=== PATIENT | female | born 1950 | race Hispanic/Latino ===

== ENCOUNTER → 2017-12-17 | Outpatient (CLI) | payer OTHER ==
[~2017-12-17] MED LIST: ASPI-555 PO; LUBI8CAP PO; SERT100T12 PO; SIMV40TA59 PO
== END | disposition home or self-care (01) ==
LOC: RAH 12:31
PROVIDERS: ATTEND Internal Medicine
DX: Z13.6 Encounter for screening for cardiovascular disorders (principal); K44.9 Diaphragmatic hernia without obstruction or gangrene
CPT/HCPCS: 75571

== ENCOUNTER → 2018-05-23 | Outpatient (CLI) | payer OTHER | END | disposition home or self-care (01) | LOC: RAH 08:47 | PROVIDERS: ATTEND Internal Medicine | DX: Z12.31 Encounter for screening mammogram for malignant neoplasm of breast (principal); I10 Essential (primary) hypertension; E78.00 Pure hypercholesterolemia, unspecified; M17.11 Unilateral primary osteoarthritis, right knee; K21.9 Gastro-esophageal reflux disease without esophagitis; Z90.49 Acquired absence of other specified parts of digestive tract | CPT/HCPCS: 77067 ==

== ENCOUNTER → 2019-05-24 | Outpatient (CLI) | payer OTHER | END | disposition home or self-care (01) | LOC: RAH 09:11 | PROVIDERS: ATTEND Internal Medicine | DX: Z12.31 Encounter for screening mammogram for malignant neoplasm of breast (principal) | CPT/HCPCS: 77067 ==

== ENCOUNTER → 2019-05-30 | Outpatient (CLI) | payer OTHER | END | disposition home or self-care (01) | LOC: RAH 07:50 | PROVIDERS: ATTEND Internal Medicine | DX: R10.9 Unspecified abdominal pain (principal); Z90.49 Acquired absence of other specified parts of digestive tract | CPT/HCPCS: 76700 ==

== ENCOUNTER 2019-12-30 13:42 | Emergency (ER) | payer OTHER ==
[2019-12-30] MEDS ORDERED: KETOROLAC TROMETHAMINE 15MG/ML ONE (14:42)
[2019-12-30] MEDS ORDERED: PROCHLORPERAZINE EDISYLATE 10 MG/2 ML VIAL ONE (14:42)
[2019-12-30 14:44] LABS: EOSINOPHILS % (AUTO) 3.3 % (0.0-8.0); HEMATOCRIT 39.7 % (36-48); LYMPHOCYTES % (AUTO) 41.7 % (21.0-51.0); MEAN CORPUSCULAR HEMOGLOBIN 29.4 pg (27.0-33.0); MEAN CORPUSCULAR HGB CONC 33.5 g/dL (32.0-36.0); MEAN CORPUSCULAR VOLUME 87.6 fL (79-99); NEUTROPHILS % (AUTO) 46.9 % (40.0-77.0); PLATELET COUNT (AUTO) 232 K/uL (130-400); RED BLOOD CELL COUNT(AUTO) 4.53 MIL/uL (4.00-5.50); RED CELL DISTRIBUTION WIDTH 12.7 % (11.0-15.5)
[2019-12-30 14:59] LABS: CREATININE 0.7 mg/dL (0.5-1.5); POTASSIUM 4.3 mmol/L (3.5-5.1)
[2019-12-30 15:01] LABS: APPEARANCE,URINE Clear (CLEAR); BILIRUBIN,URINE Negative (NEGATIVE); COLOR,URINE Yellow (YELLOW); GLUCOSE, URINE (UA) Negative (NEGATIVE); KETONES,URINE Negative (NEGATIVE); LEUKOCYTE ESTERASE ,URINE Negative (NEGATIVE); NITRATE,URINE Negative (NEGATIVE); OCCULT BLOOD,URINE Negative (NEGATIVE); PROTEIN,URINE Negative (NEGATIVE); UROBILINOGEN,URINE 0.2 mg/dL (0.2-1.0)
[2019-12-30 15:03] LABS: ALBUMIN 3.6 g/dL (3.5-5.0); BILIRUBIN,TOTAL 0.4 mg/dL (0.2-1.0)
== END 2019-12-30 17:03 | disposition home or self-care (01) ==
LOC: EDH 13:42
DX: F32.9 Major depressive disorder, single episode, unspecified (principal); F41.9 Anxiety disorder, unspecified
CPT/HCPCS: 36415; 70450; 80053; 81003; 85025; 96374; 96375; 96376; 99284; J0780; J1885

== ENCOUNTER → 2020-02-28 | Outpatient (CLI) | payer OTHER ==
[~2020-02-28] MED LIST changes: -ASPI-555 PO; +ASPI-556 PO
== END | disposition home or self-care (01) ==
LOC: RAH 08:39
PROVIDERS: ATTEND Internal Medicine
DX: M79.672 Pain in left foot (principal)
CPT/HCPCS: 73650

== ENCOUNTER → 2020-08-26 | Outpatient (CLI) | payer OTHER | END | disposition home or self-care (01) | LOC: RAH 08:33 | PROVIDERS: ATTEND Internal Medicine | DX: R01.1 Cardiac murmur, unspecified (principal); R06.02 Shortness of breath | CPT/HCPCS: 93015 ==

== ENCOUNTER 2020-09-21 14:15 | Emergency (ER) | payer OTHER | END 2020-09-21 16:24 | disposition home or self-care (01) | LOC: EDH 14:15 | DX: B34.9 Viral infection, unspecified (principal); Z20.828 Contact with and (suspected) exposure to other viral communicable diseases | CPT/HCPCS: 87426; 99283; U0003 ==

== ENCOUNTER → 2020-10-29 | Outpatient (CLI) | payer OTHER ==
[~2020-10-29] MED LIST changes: +SERT-440 PO; -SERT100T12 PO
== END | disposition home or self-care (01) ==
LOC: OIH 14:06
PROVIDERS: ATTEND Internal Medicine Cardiovascular Disease
DX: Z13.6 Encounter for screening for cardiovascular disorders (principal)
CPT/HCPCS: 75571

== ENCOUNTER → 2022-06-23 | Outpatient (CLI) | payer OTHER | END | disposition home or self-care (01) | LOC: RAH 11:12 | PROVIDERS: ATTEND Family Medicine | DX: Z12.31 Encounter for screening mammogram for malignant neoplasm of breast (principal) | CPT/HCPCS: 77067 ==

== ENCOUNTER 2022-09-24 08:13 | Emergency (ER) | payer OTHER ==
[~2022-09-24] VITALS: Ht 157.5 cm; Wt 74.8 kg
[2022-09-24 08:54] LABS: BASOPHILS % (AUTO) 1.3 % (0.0-5.0); EOSINOPHILS % (AUTO) 3.7 % (0.0-8.0); HEMATOCRIT 38.8 % (36-48); LYMPHOCYTES % (AUTO) 42.6 % (21.0-51.0); MEAN CORPUSCULAR HEMOGLOBIN 28.1 pg (27.0-33.0); MEAN CORPUSCULAR HGB CONC 32.5 g/dL (32.0-36.0); MEAN CORPUSCULAR VOLUME 86.6 fL (79-99); NEUTROPHILS % (AUTO) 44.2 % (40.0-77.0); PLATELET COUNT (AUTO) 234 K/uL (130-400); RED BLOOD CELL COUNT(AUTO) 4.48 MIL/uL (4.00-5.50); RED CELL DISTRIBUTION WIDTH 13.4 % (11.0-15.5)
[2022-09-24 09:02] LABS: CREATININE 0.6 mg/dL (0.5-1.5); POTASSIUM 4.1 mmol/L (3.5-5.1)
[2022-09-24 09:08] LABS: ALBUMIN 3.9 g/dL (3.5-5.0); TOTAL PROTEIN, SERUM 7.2 g/dL (6.0-8.3)
[2022-09-24] MEDS ORDERED: ORPHENADRINE CITRATE 30 MG/ML ML IM STA (09:20)
[2022-09-24] MEDS ORDERED: KETOROLAC 30MG VIAL (30MG/ML) IM STA (09:20)
[2022-09-24] MEDS ORDERED: DICL20GE TP (09:44)
[2022-09-24] MEDS ORDERED: METH-662 PO (09:45)
[2022-09-24 13:18] VITALS: BP 132/78
== END 2022-09-24 13:19 | disposition home or self-care (01) ==
LOC: EDH 08:13
DX: S46.912A Strain of unspecified muscle, fascia and tendon at shoulder and upper arm level, left arm, initial encounter (principal); I11.9 Hypertensive heart disease without heart failure; E11.9 Type 2 diabetes mellitus without complications; E78.00 Pure hypercholesterolemia, unspecified; F32.9 Major depressive disorder, single episode, unspecified; Z79.899 Other long term (current) drug therapy; Z79.82 Long term (current) use of aspirin; X58.XXXA Exposure to other specified factors, initial encounter; Y93.89 Activity, other specified; Y92.89 Other specified places as the place of occurrence of the external cause; Y99.8 Other external cause status
CPT/HCPCS: 99285; 70450; 84484; 80053; 85025; 36415; 96372 ×2; 93005; J1885; J2360

== ENCOUNTER → 2023-02-03 | Outpatient (CLI) | payer OTHER ==
[~2023-02-03] MED LIST changes: +DICL20GE TP; +METH-662 PO
== END | disposition home or self-care (01) ==
LOC: RAH 13:39
PROVIDERS: ATTEND Family Medicine
DX: N64.4 Mastodynia (principal); N64.59 Other signs and symptoms in breast
CPT/HCPCS: 76641; 77065

== ENCOUNTER → 2023-04-20 | Outpatient (CLI) | payer OTHER | END | disposition home or self-care (01) | LOC: SHCH 13:01 | PROVIDERS: ATTEND Internal Medicine Cardiovascular Disease | DX: I42.0 Dilated cardiomyopathy (principal) | CPT/HCPCS: 93306 ==

== ENCOUNTER → 2023-07-20 | Outpatient (CLI) | payer OTHER | END | disposition home or self-care (01) | LOC: RAH 15:28 | PROVIDERS: ATTEND Family Medicine | DX: M17.12 Unilateral primary osteoarthritis, left knee (principal); M25.562 Pain in left knee | CPT/HCPCS: 73562 ==

== ENCOUNTER 2023-12-16 21:43 | Emergency (ER) | payer OTHER ==
[~2023-12-16] VITALS: Ht 154.9 cm; Wt 74.8 kg
[2023-12-16 22:41] LABS: BASOPHILS # (AUTO) 0.07 K/uL (0.00-0.20); BASOPHILS % (AUTO) 1.2 % (0.0-5.0); EOSINOPHILS # (AUTO) 0.12 K/uL (0.00-0.70); HEMATOCRIT 34.5 % (36-48); IMMATURE GRANULOCYTE ABSOLUTE 0.02 K/uL (0-1); LYMPHOCYTES # (AUTO) 1.9 K/uL (1.0-4.8); LYMPHOCYTES % (AUTO) 32.2 % (21.0-51.0); MEAN CORPUSCULAR HEMOGLOBIN 27.4 pg (27.0-33.0); MEAN CORPUSCULAR HGB CONC 31.9 g/dL (32.0-36.0); MONOCYTES # (AUTO) 0.7 K/uL (0.1-1.0); MONOCYTES % (AUTO) 12.5 % (3.0-13.0); NEUTROPHILS # (AUTO) 3.1 K/uL (1.8-7.7); NEUTROPHILS % (AUTO) 51.8 % (40.0-77.0); PLATELET COUNT (AUTO) 236 K/uL (130-400); RED BLOOD CELL COUNT(AUTO) 4.01 MIL/uL (4.00-5.50); RED CELL DISTRIBUTION WIDTH 12.9 % (11.0-15.5); WHITE BLOOD COUNT (AUTO) 5.9 K/uL (4.8-10.8)
[2023-12-16 22:43] LABS: APPEARANCE,URINE CLEAR (CLEAR); BILIRUBIN,URINE NEGATIVE (NEGATIVE); COLOR,URINE LIGHT-YELLOW (YELLOW); GLUCOSE, URINE (UA) NEGATIVE (NEGATIVE); KETONES,URINE NEGATIVE (NEGATIVE); LEUKOCYTE ESTERASE ,URINE NEGATIVE Leu/uL (NEGATIVE); NITRATE,URINE NEGATIVE (NEGATIVE); OCCULT BLOOD,URINE NEGATIVE (NEGATIVE); PH,URINE 5.5 (5.0-8.0); PROTEIN,URINE 10 mg/dL (NEGATIVE); UROBILINOGEN,URINE 0.2 mg/dL (0.2-1.0)
[2023-12-16 22:47] LABS: ADD UA MICROSCOPIC YES
[2023-12-16 22:49] LABS: BACTERIA,URINE RARE /HPF (None Seen); MUCUS,URINE FEW LPF (None Seen); RBC,URINE 0-1 /HPF (0-1); SQUAMOUS EPITHELIAL CELL,UR RARE /HPF (0-2); WBC,URINE 0-1 /HPF (0-1)
[2023-12-16 23:11] LABS: CREATININE 0.6 mg/dL (0.5-1.0); POTASSIUM 3.5 mmol/L (3.5-5.1)
[2023-12-16 23:15] LABS: BILIRUBIN,TOTAL 0.2 mg/dL (0.2-1.0); TOTAL PROTEIN, SERUM 6.6 g/dL (6.0-8.3)
[2023-12-16] MEDS: LACTATED RINGERS 1000ML 1,000 ML IV ONE (23:17)
[2023-12-16] MEDS: ONDANSETRON 4MG INJ IVP ONE (23:17)
[2023-12-17 00:26] VITALS: BP 122/62; PULSE 75; RESP 18; O2SAT 98
== END 2023-12-17 00:41 | disposition home or self-care (01) ==
LOC: EDH 21:43
DX: K52.9 Noninfective gastroenteritis and colitis, unspecified (principal); R11.2 Nausea with vomiting, unspecified; E78.00 Pure hypercholesterolemia, unspecified; I10 Essential (primary) hypertension; F32.A Depression, unspecified; Z79.1 Long term (current) use of non-steroidal anti-inflammatories (NSAID)
CPT/HCPCS: 99284; 96374; 96361; 80053; 83690; 85025; 81001; 36415; J7120; J2405

== ENCOUNTER → 2024-02-15 | Outpatient (CLI) | payer OTHER | END | disposition home or self-care (01) | LOC: RAH 09:19 | PROVIDERS: ATTEND Surgery | DX: K44.9 Diaphragmatic hernia without obstruction or gangrene (principal); K21.9 Gastro-esophageal reflux disease without esophagitis | CPT/HCPCS: 74240 ==

== ENCOUNTER 2024-03-30 16:43 | Emergency (ER) | payer OTHER, MEDICARE ==
[~2024-03-30] VITALS: Ht 157.5 cm; Wt 74.8 kg
[2024-03-30 17:13] LABS: BASOPHILS % (AUTO) 1.1 % (0.0-5.0); EOSINOPHILS # (AUTO) 0.11 K/uL (0.00-0.70); EOSINOPHILS % (AUTO) 1.2 % (0.0-8.0); HEMATOCRIT 39.8 % (36-48); IMMATURE GRANULOCYTE ABSOLUTE 0.03 K/uL (0-1); LYMPHOCYTES # (AUTO) 4.1 K/uL (1.0-4.8); LYMPHOCYTES % (AUTO) 44.3 % (21.0-51.0); MEAN CORPUSCULAR HEMOGLOBIN 25.7 pg (27.0-33.0); MEAN CORPUSCULAR HGB CONC 31.9 g/dL (32.0-36.0); MEAN CORPUSCULAR VOLUME 80.6 fL (79-99); MONOCYTES # (AUTO) 0.5 K/uL (0.1-1.0); MONOCYTES % (AUTO) 5.7 % (3.0-13.0); NEUTROPHILS # (AUTO) 4.4 K/uL (1.8-7.7); NEUTROPHILS % (AUTO) 47.4 % (40.0-77.0); PLATELET COUNT (AUTO) 371 K/uL (130-400); RED BLOOD CELL COUNT(AUTO) 4.94 MIL/uL (4.00-5.50); WHITE BLOOD COUNT (AUTO) 9.3 K/uL (4.8-10.8)
[2024-03-30 17:20] LABS: ADD UA MICROSCOPIC YES; APPEARANCE,URINE CLEAR (CLEAR); BILIRUBIN,URINE NEGATIVE (NEGATIVE); COLOR,URINE LIGHT-YELLOW (YELLOW); GLUCOSE, URINE (UA) NEGATIVE (NEGATIVE); KETONES,URINE NEGATIVE (NEGATIVE); LEUKOCYTE ESTERASE ,URINE NEGATIVE Leu/uL (NEGATIVE); NITRATE,URINE NEGATIVE (NEGATIVE); OCCULT BLOOD,URINE NEGATIVE (NEGATIVE); PROTEIN,URINE NEGATIVE (NEGATIVE); UROBILINOGEN,URINE 0.2 mg/dL (0.2-1.0)
[2024-03-30 17:22] LABS: BACTERIA,URINE RARE /HPF (None Seen); MUCUS,URINE RARE LPF (None Seen); RBC,URINE 0-1 /HPF (0-1); SQUAMOUS EPITHELIAL CELL,UR RARE /HPF (0-2)
[2024-03-30 17:26] LABS: CARBON DIOXIDE 30 mmol/L (21-32); CHLORIDE 104 mmol/L (101-111); CREATININE 0.7 mg/dL (0.5-1.0); GLOMERULAR FILTR. RATE CALC 92 mL/min (>90); GLUCOSE,RANDOM 104 mg/dL (70-105); SODIUM SERUM 142 mmol/L (136-145); UREA NITROGEN, BLOOD 12 mg/dL (7-18)
[2024-03-30 17:27] LABS: AMPHET/METH SCREEN,URINE NEGATIVE (NEGATIVE); BARBITURATE SCREEN, URINE NEGATIVE (NEGATIVE); BENZODIAZEPINES SCREEN,URINE NEGATIVE (NEGATIVE); CANNABINOID SCREEN,URINE NEGATIVE (NEGATIVE); COCAINE SCREEN,URINE NEGATIVE (NEGATIVE); OPIATE SCREEN,URINE NEGATIVE (NEGATIVE); PHENCYCLIDINE SCREEN,URINE NEGATIVE (NEGATIVE)
[2024-03-30 17:31] LABS: ACETAMINOPHEN < 1 mcg/mL (10-30); ALANINE AMINOTRANSFERASE 25 U/L (12-78); ALBUMIN 3.8 g/dL (3.5-5.0); ALCOHOL, BLOOD < 3 mg/dL (0-10); ASPARTATE AMINOTRANSFERASE 18 U/L (10-37); BILIRUBIN,TOTAL 0.5 mg/dL (0.2-1.0); SALICYLATE < 2.8 mg/dL (2.8-20.0); TOTAL PROTEIN, SERUM 7.7 g/dL (6.0-8.3)
[2024-03-30 20:01] VITALS: BP 175/82; PULSE 82; RESP 16; O2SAT 99
== END 2024-03-30 20:08 | disposition home or self-care (01) ==
LOC: EDH 16:43
DX: F41.9 Anxiety disorder, unspecified (principal); F32.A Depression, unspecified; E78.00 Pure hypercholesterolemia, unspecified; I10 Essential (primary) hypertension; Z79.1 Long term (current) use of non-steroidal anti-inflammatories (NSAID); Z79.899 Other long term (current) drug therapy; Z98.890 Other specified postprocedural states
CPT/HCPCS: 99283; 80053; 80305; 85025; 81001; 36415; G0481

== ENCOUNTER 2024-04-14 10:02 | Emergency (ER) | payer OTHER, MEDICARE ==
[~2024-04-14] VITALS: Ht 157.5 cm; Wt 69.9 kg
[2024-04-14 10:04] VITALS: BP 132/76; PULSE 66; RESP 16
[2024-04-14] MEDS ORDERED: AMOX1TAB16 PO (10:23)
[2024-04-14] MEDS: AMOX/CLAV 875/125MG TAB PO ONE (10:33)
[2024-04-14] MEDS: TETANUS/DIPHTHERIA TOXOID [ADULT] 0.5 ML VIAL IM ONE (10:34)
[2024-04-14] MEDS: ACETAMINOPHEN 500 MG TABLET PO ONE (10:35)
== END 2024-04-14 10:38 | disposition home or self-care (01) ==
LOC: EDH 10:02
DX: S81.852A Open bite, left lower leg, initial encounter (principal); K21.9 Gastro-esophageal reflux disease without esophagitis; E78.00 Pure hypercholesterolemia, unspecified; F32.A Depression, unspecified; Z79.82 Long term (current) use of aspirin; Z79.899 Other long term (current) drug therapy; Z90.49 Acquired absence of other specified parts of digestive tract; Z98.890 Other specified postprocedural states; W54.0XXA Bitten by dog, initial encounter; Y93.89 Activity, other specified; Y92.89 Other specified places as the place of occurrence of the external cause; Y99.8 Other external cause status
CPT/HCPCS: 90471; 90714

== ENCOUNTER 2024-05-12 14:58 | Emergency (ER) | payer OTHER, MEDICARE ==
[~2024-05-12] VITALS: Ht 157.5 cm; Wt 72.6 kg
[~2024-05-12 14:58] MED LIST changes: +AMOX1TAB16 PO
[2024-05-12 15:35] LABS: BASOPHILS # (AUTO) 0.04 K/uL (0.00-0.20); BASOPHILS % (AUTO) 0.4 % (0.0-5.0); EOSINOPHILS # (AUTO) 0.26 K/uL (0.00-0.70); EOSINOPHILS % (AUTO) 2.6 % (0.0-8.0); HEMATOCRIT 34.1 % (36-48); IMMATURE GRANULOCYTE ABSOLUTE 0.06 K/uL (0-1); LYMPHOCYTES % (AUTO) 9.6 % (21.0-51.0); MEAN CORPUSCULAR HEMOGLOBIN 26.4 pg (27.0-33.0); MEAN CORPUSCULAR VOLUME 82.6 fL (79-99); MONOCYTES # (AUTO) 0.6 K/uL (0.1-1.0); NEUTROPHILS # (AUTO) 8.1 K/uL (1.8-7.7); NEUTROPHILS % (AUTO) 80.8 % (40.0-77.0); PLATELET COUNT (AUTO) 235 K/uL (130-400); RED BLOOD CELL COUNT(AUTO) 4.13 MIL/uL (4.00-5.50); RED CELL DISTRIBUTION WIDTH 15.6 % (11.0-15.5)
[2024-05-12 15:44] LABS: CREATININE 0.7 mg/dL (0.5-1.0); POTASSIUM 4.9 mmol/L (3.5-5.1)
[2024-05-12 15:46] LABS: INR <= 0.93 (0.85-1.15); PROTHROMBIN TIME 10.1 SEC (9.6-11.6)
[2024-05-12 15:47] LABS: PARTIAL THROMBOPLASTIN TIME 25.5 SEC (26.3-35.5)
[2024-05-12 15:49] LABS: ALBUMIN 3.1 g/dL (3.5-5.0); BILIRUBIN,TOTAL 0.8 mg/dL (0.2-1.0)
[2024-05-12] MEDS: acetaMINOPHEN 500 MG TABLET PO STA (17:06)
[2024-05-12] MEDS: 0.9%NACL 1000ML 1,000 ML IV ONE (17:06)
[2024-05-12 18:35] VITALS: BP 119/61; PULSE 78; RESP 17; O2SAT 98
== END 2024-05-12 18:20 | disposition home or self-care (01) ==
LOC: EDH 14:58
DX: E86.0 Dehydration (principal); R53.1 Weakness; E78.00 Pure hypercholesterolemia, unspecified; F32.A Depression, unspecified; F41.9 Anxiety disorder, unspecified; Z79.82 Long term (current) use of aspirin; Z79.899 Other long term (current) drug therapy; Z90.49 Acquired absence of other specified parts of digestive tract; Z98.890 Other specified postprocedural states
CPT/HCPCS: 99284; 96360; 84484; 80053; 85025; 85610; 85730; 36415; 93005; J7030

== ENCOUNTER 2024-05-13 04:12 | Observation (INO) | payer OTHER, MEDICARE ==
[~2024-05-13] VITALS: Ht 160 cm; Wt 72.1 kg
[2024-05-13 04:43] LABS: BASOPHILS # (AUTO) 0.04 K/uL (0.00-0.20); BASOPHILS % (AUTO) 0.4 % (0.0-5.0); EOSINOPHILS # (AUTO) 0.19 K/uL (0.00-0.70); HEMATOCRIT 32.1 % (36-48); IMMATURE GRANULOCYTE ABSOLUTE 0.05 K/uL (0-1); LYMPHOCYTES # (AUTO) 1.2 K/uL (1.0-4.8); LYMPHOCYTES % (AUTO) 12.9 % (21.0-51.0); MEAN CORPUSCULAR HEMOGLOBIN 26.2 pg (27.0-33.0); MEAN CORPUSCULAR HGB CONC 31.8 g/dL (32.0-36.0); MEAN CORPUSCULAR VOLUME 82.3 fL (79-99); MONOCYTES # (AUTO) 0.6 K/uL (0.1-1.0); MONOCYTES % (AUTO) 6.6 % (3.0-13.0); NEUTROPHILS # (AUTO) 7.4 K/uL (1.8-7.7); NEUTROPHILS % (AUTO) 77.6 % (40.0-77.0); PLATELET COUNT (AUTO) 245 K/uL (130-400); RED CELL DISTRIBUTION WIDTH 15.8 % (11.0-15.5); WHITE BLOOD COUNT (AUTO) 9.5 K/uL (4.8-10.8)
[2024-05-13 04:52] LABS: CREATININE 0.6 mg/dL (0.5-1.0); POTASSIUM 4.3 mmol/L (3.5-5.1)
[2024-05-13] MEDS ORDERED: IOHEXOL-350 75 ML VIAL IV ONE (06:06)
[2024-05-13] MEDS ORDERED: ketOROlac 15MG/ML VIAL (15MG/ML) IV PRN (09:30)
[2024-05-13] MEDS ORDERED: acetaMINOPHEN 500 MG TABLET PO PRN (09:30)
[2024-05-13] MEDS: LACTULOSE 20 GM/30 ML UDCUP PO PRN (09:37)
[2024-05-13] MEDS: 0.9%NACL 1000ML 1,000 ML IV SCH (09:48)
[2024-05-13] MEDS: CEFTRIAXONE 2GM VIAL IVPB SCH (09:48)
[2024-05-13] MEDS: GLYCERIN ADULT SUPP.RECT RC PRN (10:17)
[2024-05-13] MEDS ORDERED: acetaMINOPHEN 325 MG TAB PO PRN (11:00)
[2024-05-13] MEDS: HYDROcodone/APAP 5/325 1 TAB TABLET PO PRN (11:08)
[2024-05-13 11:15] VITALS: BP 151/80; PULSE 78; RESP 20; TEMP 98.5
[2024-05-13 11:23] LABS: ADD UA MICROSCOPIC YES; APPEARANCE,URINE CLEAR (CLEAR); BILIRUBIN,URINE NEGATIVE (NEGATIVE); COLOR,URINE LIGHT-YELLOW (YELLOW); GLUCOSE, URINE (UA) NEGATIVE (NEGATIVE); KETONES,URINE NEGATIVE (NEGATIVE); LEUKOCYTE ESTERASE ,URINE NEGATIVE Leu/uL (NEGATIVE); NITRATE,URINE NEGATIVE (NEGATIVE); OCCULT BLOOD,URINE NEGATIVE (NEGATIVE); PROTEIN,URINE 30 mg/dL (NEGATIVE); UROBILINOGEN,URINE 0.2 mg/dL (0.2-1.0)
[2024-05-13 11:24] LABS: SQUAMOUS EPITHELIAL CELL,UR RARE /HPF (0-2); WBC,URINE 0-1 /HPF (0-1)
[2024-05-13 12:00] VITALS: O2SAT 95
[2024-05-13 12:58] LABS: HEMATOCRIT 29.9 % (36-48)
[2024-05-13 15:30] VITALS: BP 150/74; PULSE 75; RESP 20; TEMP 98.6
[2024-05-13 17:41] LABS: HEMATOCRIT 31.5 % (36-48)
[2024-05-13 20:00] VITALS: BP 141/82; PULSE 76; RESP 18; TEMP 98.4
[2024-05-13] MEDS: FAMOTIDINE 20MG TAB PO SCH (20:04)
[2024-05-13] MEDS: doCUSate SODIUM 100 MG CAP PO SCH (20:04)
[2024-05-13 20:05] VITALS: O2SAT 97
[2024-05-13] MEDS: ONDANSETRON 4MG INJ IV PRN (23:27)
[2024-05-14] VITALS: BP 169/79; PULSE 79; RESP 18; TEMP 98.3
[2024-05-14 01:08] LABS: HEMATOCRIT 31.4 % (36-48)
[2024-05-14 04:00] VITALS: BP 142/67; PULSE 72; RESP 20; TEMP 98.7
[2024-05-14 05:11] LABS: HEMATOCRIT 30.5 % (36-48); MEAN CORPUSCULAR HEMOGLOBIN 26.4 pg (27.0-33.0); MEAN CORPUSCULAR HGB CONC 31.5 g/dL (32.0-36.0); MEAN CORPUSCULAR VOLUME 83.8 fL (79-99); RED BLOOD CELL COUNT(AUTO) 3.64 MIL/uL (4.00-5.50); RED CELL DISTRIBUTION WIDTH 15.8 % (11.0-15.5)
[2024-05-14 05:28] LABS: HEMOGLOBIN A1C 5.7 % (4.0-6.0)
[2024-05-14 05:32] LABS: ALBUMIN 2.7 g/dL (3.5-5.0); BILIRUBIN,TOTAL 0.4 mg/dL (0.2-1.0); CREATININE 0.5 mg/dL (0.5-1.0); POTASSIUM 3.6 mmol/L (3.5-5.1); TOTAL PROTEIN, SERUM 6.3 g/dL (6.0-8.3)
[2024-05-14 07:40] VITALS: BP 122/45; PULSE 69; RESP 20; TEMP 98.5
[2024-05-14] MEDS: polyETHYLene GLYCol 3350 17 GM POWD.PACK PO SCH (08:08)
[2024-05-14 09:12] VITALS: O2SAT 100
[2024-05-14] MEDS: MAGNESIUM CITRATE 296 ML SOLUTION PO ONE (10:03)
[2024-05-14 11:53] VITALS: BP 136/69; PULSE 74; RESP 20; TEMP 98.2
[2024-05-17] MEDS ORDERED: AMOX1TAB16 PO (10:42)
== END 2024-05-14 13:39 | disposition home or self-care (01) ==
LOC: EDH 04:12 → INTOOBSV 09:19 → EDHIP 09:19 → 4CH 11:15
PROVIDERS: ADMIT Internal Medicine; ATTEND Internal Medicine
DX: K62.5 Hemorrhage of anus and rectum (principal); K64.8 Other hemorrhoids; E78.5 Hyperlipidemia, unspecified; K59.00 Constipation, unspecified; I10 Essential (primary) hypertension; F41.9 Anxiety disorder, unspecified; F32.A Depression, unspecified; R18.8 Other ascites; Z90.49 Acquired absence of other specified parts of digestive tract; Z79.82 Long term (current) use of aspirin; Z79.899 Other long term (current) drug therapy
CPT/HCPCS: 96361 ×2; 96365; 96375; 99285; 80048; 85025; 85014 ×3; 85018 ×3; 86850; 86900; 86901; 87040; 81001; 36415; 74177; 84145; 96366; 83036; 80053; 85027; 87086; 87186; J7030; J0696 ×2; J2405; Q9967; G0378 ×2

== ENCOUNTER 2024-06-06 13:05 | Observation (INO) | payer OTHER, MEDICARE ==
[~2024-06-06] VITALS: Ht 149.9 cm; Wt 74.5 kg
[~2024-06-06 13:05] MED LIST changes: +ACET-2893 PO; +AMOX-426 PO; -AMOX1TAB16 PO; -DICL20GE TP; -LUBI8CAP PO; -METH-662 PO; +METO-408 PO; +OMEP40CA21 PO; +PARO10TA71 PO; -SERT-440 PO; +probiotic PO
[2024-06-06 14:58] LABS: BASOPHILS # (AUTO) 0.07 K/uL (0.00-0.20); BASOPHILS % (AUTO) 0.7 % (0.0-5.0); EOSINOPHILS # (AUTO) 0.19 K/uL (0.00-0.70); EOSINOPHILS % (AUTO) 1.9 % (0.0-8.0); HEMATOCRIT 39.7 % (36-48); IMMATURE GRANULOCYTE ABSOLUTE 0.04 K/uL (0-1); LYMPHOCYTES # (AUTO) 1.6 K/uL (1.0-4.8); LYMPHOCYTES % (AUTO) 16.4 % (21.0-51.0); MEAN CORPUSCULAR HEMOGLOBIN 26.1 pg (27.0-33.0); MEAN CORPUSCULAR VOLUME 81.5 fL (79-99); MONOCYTES # (AUTO) 0.4 K/uL (0.1-1.0); MONOCYTES % (AUTO) 4.3 % (3.0-13.0); NEUTROPHILS # (AUTO) 7.6 K/uL (1.8-7.7); NEUTROPHILS % (AUTO) 76.3 % (40.0-77.0); PLATELET COUNT (AUTO) 296 K/uL (130-400); RED BLOOD CELL COUNT(AUTO) 4.87 MIL/uL (4.00-5.50); RED CELL DISTRIBUTION WIDTH 15.5 % (11.0-15.5)
[2024-06-06 15:04] LABS: APPEARANCE,URINE CLOUDY (CLEAR); BILIRUBIN,URINE NEGATIVE (NEGATIVE); COLOR,URINE YELLOW (YELLOW); GLUCOSE, URINE (UA) NEGATIVE (NEGATIVE); KETONES,URINE NEGATIVE (NEGATIVE); LEUKOCYTE ESTERASE ,URINE 500 Leu/uL (NEGATIVE); NITRATE,URINE NEGATIVE (NEGATIVE); PH,URINE 5.5 (5.0-8.0); PROTEIN,URINE 30 mg/dL (NEGATIVE); UROBILINOGEN,URINE 0.2 mg/dL (0.2-1.0)
[2024-06-06 15:08] LABS: INR 0.95 (0.85-1.15); PROTHROMBIN TIME 10.3 SEC (9.6-11.6)
[2024-06-06 15:09] LABS: BACTERIA,URINE RARE /HPF (None Seen); CREATININE 0.7 mg/dL (0.5-1.0); MUCUS,URINE RARE LPF (None Seen); POTASSIUM 3.3 mmol/L (3.5-5.1); RBC,URINE 26-50 /HPF (0-1); SQUAMOUS EPITHELIAL CELL,UR RARE /HPF (0-2); WBC,URINE 51-100 /HPF (0-1)
[2024-06-06 15:10] LABS: PARTIAL THROMBOPLASTIN TIME 20.3 SEC (26.3-35.5)
[2024-06-06] MEDS: PoTASSium chloRIDE 20MEQ ER 20 MEQ ERTAB PO SCH (16:35)
[2024-06-06] MEDS: cefTRIAXone 1G VIAL IVPB ONE (16:35)
[2024-06-06] MEDS ORDERED: LIDOCAINE HCL 2% VISCOUS 30 ML, MAG/ALUM/SIMETH 30ML 30 ML, DICYCLOMINE HCL 20 MG PO PRN (17:30)
[2024-06-06] MEDS ORDERED: LOPERAMIDE HCL 2 MG CAP PO PRN (17:30)
[2024-06-06] MEDS ORDERED: guaiFENesin SUGAR-FREE 100 MG/5 ML UDCUP PO PRN (17:30)
[2024-06-06] MEDS ORDERED: BENZOCAINE/MENTH/CETYLPYRD CL 1 EACH LOZENGE MM PRN (17:30)
[2024-06-06] MEDS ORDERED: acetaMINOPHEN 325 MG TAB PO PRN (17:30)
[2024-06-06] MEDS ORDERED: DiphenhydrAMINE HCL 25 MG CAPSULE PO PRN (17:30)
[2024-06-06] MEDS ORDERED: NITROGLYCERIN 0.4 MG SL TAB SL PRN (17:30)
[2024-06-06] MEDS ORDERED: MAGNESIUM 2GM PREMIX 50ML 50 ML IV PRN (17:30)
[2024-06-06] MEDS ORDERED: LACTULOSE 20 GM/30 ML UDCUP PO PRN (17:30)
[2024-06-06] MEDS ORDERED: polyETHYLene GLYCol 3350 17 GM POWD.PACK PO PRN (17:30)
[2024-06-06] MEDS ORDERED: PoTASSium chloRIDE 10MEQ/100ML 100 ML IV PRN (17:30)
[2024-06-06] MEDS ORDERED: ARTIFICAL TEARS SOL 15 ML OP PRN (17:30)
[2024-06-06] MEDS ORDERED: doCUSate SODIUM 100 MG CAP PO PRN (17:30)
[2024-06-06 17:54] LABS: CREATINE KINASE, TOTAL 42 U/L (21-232)
[2024-06-06] MEDS ORDERED: IOHEXOL-350 75 ML VIAL IV ONE (18:44)
[2024-06-06] MEDS: HEParin 5,000 UNIT VIAL SQ SCH (18:57)
[2024-06-06] MEDS: FAMOTIDINE 20MG TAB PO SCH (22:22)
[2024-06-06 22:38] VITALS: BP 157/93; PULSE 74; RESP 20; TEMP 97.6
[2024-06-06] MEDS ORDERED: LACT1TAB26 PO (23:34)
[2024-06-06] MEDS ORDERED: OMEP40CA21 PO (23:34)
[2024-06-06] MEDS ORDERED: FLUT16H EN (23:34)
[2024-06-06] MEDS ORDERED: PARO10TA71 PO (23:34)
[2024-06-06] MEDS ORDERED: AEC81 PO (23:34)
[2024-06-06] MEDS ORDERED: METO-408 PO (23:34)
[2024-06-06] MEDS ORDERED: SIMV-46 PO (23:34)
[2024-06-06] MEDS ORDERED: ACET-2743 PO (23:34)
[2024-06-07] VITALS (9 sets, daily range): BP systolic 117–157; BP diastolic 66–93; PULSE 62–88; RESP 16–20; TEMP 97.5–98.8; O2SAT 96–97
[2024-06-07 05:51] LABS: BASOPHILS # (AUTO) 0.06 K/uL (0.00-0.20); BASOPHILS % (AUTO) 0.9 % (0.0-5.0); EOSINOPHILS # (AUTO) 0.33 K/uL (0.00-0.70); EOSINOPHILS % (AUTO) 5.2 % (0.0-8.0); HEMATOCRIT 34.5 % (36-48); IMMATURE GRANULOCYTE ABSOLUTE 0.02 K/uL (0-1); LYMPHOCYTES # (AUTO) 2.4 K/uL (1.0-4.8); LYMPHOCYTES % (AUTO) 37.4 % (21.0-51.0); MEAN CORPUSCULAR HGB CONC 31.6 g/dL (32.0-36.0); MEAN CORPUSCULAR VOLUME 82.3 fL (79-99); MONOCYTES # (AUTO) 0.6 K/uL (0.1-1.0); MONOCYTES % (AUTO) 9.2 % (3.0-13.0); PLATELET COUNT (AUTO) 256 K/uL (130-400); RED BLOOD CELL COUNT(AUTO) 4.19 MIL/uL (4.00-5.50); RED CELL DISTRIBUTION WIDTH 15.4 % (11.0-15.5); WHITE BLOOD COUNT (AUTO) 6.3 K/uL (4.8-10.8)
[2024-06-07] MEDS: cefTRIAXone 1G VIAL IVPB SCH (08:31)
[2024-06-07] MEDS: ondanSETRON 4MG INJ IV PRN (09:21)
[2024-06-07] MEDS: LACTATED RINGERS 1000ML 1,000 ML IV SCH (12:51)
[2024-06-07] MEDS ORDERED: PoTASSium chl 10% ELIXIR 20MEQ 20 MEQ/15 ML UDCUP PO PRN (13:30)
[2024-06-07] MEDS ORDERED: MAGNESIUM 2GM PREMIX 50ML 50 ML IV PRN (13:30)
[2024-06-07] MEDS ORDERED: PoTASSium chloRIDE 20MEQ/100ML 100 ML IV PRN (13:30)
[2024-06-07] MEDS: PoTASSium chloRIDE 20MEQ ER 20 MEQ ERTAB PO PRN (14:33)
[2024-06-07] MEDS: acetaMINOPHEN 325 MG TAB PO PRN (14:33)
[2024-06-07] MEDS ORDERED: IOHEXOL-350 75 ML VIAL IV ONE (16:58)
[2024-06-08] VITALS: BP 132/80; PULSE 63; RESP 20; TEMP 97.9
[2024-06-08 04:00] VITALS: BP 120/63; PULSE 70; RESP 20; TEMP 98.5
[2024-06-08 05:15] LABS: BASOPHILS # (AUTO) 0.07 K/uL (0.00-0.20); BASOPHILS % (AUTO) 1.3 % (0.0-5.0); EOSINOPHILS # (AUTO) 0.38 K/uL (0.00-0.70); EOSINOPHILS % (AUTO) 6.9 % (0.0-8.0); HEMATOCRIT 31.5 % (36-48); IMMATURE GRANULOCYTE ABSOLUTE 0.01 K/uL (0-1); LYMPHOCYTES # (AUTO) 2.2 K/uL (1.0-4.8); LYMPHOCYTES % (AUTO) 40.7 % (21.0-51.0); MEAN CORPUSCULAR HEMOGLOBIN 25.4 pg (27.0-33.0); MEAN CORPUSCULAR HGB CONC 30.8 g/dL (32.0-36.0); MEAN CORPUSCULAR VOLUME 82.5 fL (79-99); MONOCYTES # (AUTO) 0.5 K/uL (0.1-1.0); MONOCYTES % (AUTO) 9.6 % (3.0-13.0); NEUTROPHILS # (AUTO) 2.3 K/uL (1.8-7.7); NEUTROPHILS % (AUTO) 41.3 % (40.0-77.0); PLATELET COUNT (AUTO) 257 K/uL (130-400); RED BLOOD CELL COUNT(AUTO) 3.82 MIL/uL (4.00-5.50); RED CELL DISTRIBUTION WIDTH 15.5 % (11.0-15.5); WHITE BLOOD COUNT (AUTO) 5.5 K/uL (4.8-10.8)
[2024-06-08 05:46] LABS: CREATININE 0.7 mg/dL (0.5-1.0); POTASSIUM 3.3 mmol/L (3.5-5.1)
[2024-06-08 08:23] VITALS: BP 139/89; PULSE 65; RESP 17; TEMP 98.8
[2024-06-08 11:21] VITALS: O2SAT 95
[2024-06-08 11:40] VITALS: BP 120/71; PULSE 73; RESP 18; TEMP 97.7
[2024-06-08] MEDS ORDERED: ARTIFICAL TEARS SOL 15 ML OP PRN (12:30)
== END 2024-06-08 13:00 | disposition home or self-care (01) ==
LOC: EDH 13:05 → EDHIP 17:07 → 3BH 22:30
PROVIDERS: ADMIT Internal Medicine; ATTEND Internal Medicine
DX: R55 Syncope and collapse (principal); N30.00 Acute cystitis without hematuria; E86.0 Dehydration; I10 Essential (primary) hypertension; E78.5 Hyperlipidemia, unspecified; F41.9 Anxiety disorder, unspecified; K21.9 Gastro-esophageal reflux disease without esophagitis; K44.9 Diaphragmatic hernia without obstruction or gangrene; E87.1 Hypo-osmolality and hyponatremia; E87.8 Other disorders of electrolyte and fluid balance, not elsewhere classified; R60.0 Localized edema; K64.9 Unspecified hemorrhoids; Z88.5 Allergy status to narcotic agent; Z79.82 Long term (current) use of aspirin; Z79.899 Other long term (current) drug therapy
CPT/HCPCS: 96372 ×3; 96361; 96365; 96366; 82550 ×4; 84484 ×4; 80048 ×2; 83880; 85025 ×3; 85378; 85610; 85730; 87086; 83605 ×2; 81001; 36415 ×3; 71045; 70450; 71270; 74176; 93880; 99291; 93005; 84145 ×2; 96376 ×2; 96375; 83735 ×2; 70496; 70498; 93306; 93970; 70551; 97161; 97116; G0378 ×41; J0696 ×3; J1644 ×6; Q9967 ×2; J2405; G8980-CI; G8983-CI

== ENCOUNTER 2024-06-11 11:22 | Emergency (ER) | payer OTHER, MEDICARE ==
[~2024-06-11] VITALS: Ht 152.4 cm; Wt 71.7 kg
[~2024-06-11 11:22] MED LIST changes: +ACET-2743 PO; +AEC81 PO; +FLUT16H EN; +LACT1TAB26 PO; +SIMV-46 PO
[2024-06-11] MEDS: ondanSETRON 4MG INJ IVP ONE (12:45)
[2024-06-11 12:59] LABS: BASOPHILS # (AUTO) 0.06 K/uL (0.00-0.20); EOSINOPHILS # (AUTO) 0.24 K/uL (0.00-0.70); EOSINOPHILS % (AUTO) 4.1 % (0.0-8.0); HEMATOCRIT 35.4 % (36-48); IMMATURE GRANULOCYTE ABSOLUTE 0.01 K/uL (0-1); LYMPHOCYTES # (AUTO) 2.3 K/uL (1.0-4.8); LYMPHOCYTES % (AUTO) 38.8 % (21.0-51.0); MEAN CORPUSCULAR HGB CONC 31.9 g/dL (32.0-36.0); MEAN CORPUSCULAR VOLUME 81.6 fL (79-99); MONOCYTES # (AUTO) 0.5 K/uL (0.1-1.0); MONOCYTES % (AUTO) 9.3 % (3.0-13.0); NEUTROPHILS # (AUTO) 2.7 K/uL (1.8-7.7); NEUTROPHILS % (AUTO) 46.6 % (40.0-77.0); PLATELET COUNT (AUTO) 277 K/uL (130-400); RED BLOOD CELL COUNT(AUTO) 4.34 MIL/uL (4.00-5.50); RED CELL DISTRIBUTION WIDTH 15.3 % (11.0-15.5); WHITE BLOOD COUNT (AUTO) 5.8 K/uL (4.8-10.8)
[2024-06-11 13:12] LABS: CREATININE 0.8 mg/dL (0.5-1.0); POTASSIUM 4.1 mmol/L (3.5-5.1)
[2024-06-11 13:14] LABS: APPEARANCE,URINE CLEAR (CLEAR); BILIRUBIN,URINE NEGATIVE (NEGATIVE); COLOR,URINE YELLOW (YELLOW); GLUCOSE, URINE (UA) NEGATIVE (NEGATIVE); KETONES,URINE NEGATIVE (NEGATIVE); LEUKOCYTE ESTERASE ,URINE NEGATIVE Leu/uL (NEGATIVE); NITRATE,URINE NEGATIVE (NEGATIVE); OCCULT BLOOD,URINE NEGATIVE (NEGATIVE); PH,URINE 5.5 (5.0-8.0); PROTEIN,URINE NEGATIVE (NEGATIVE); UROBILINOGEN,URINE 3 mg/dL (0.2-1.0)
[2024-06-11 13:15] LABS: ADD UA MICROSCOPIC YES
[2024-06-11 13:16] LABS: MUCUS,URINE RARE LPF (None Seen); RBC,URINE 0-1 /HPF (0-1); SQUAMOUS EPITHELIAL CELL,UR RARE /HPF (0-2); WBC,URINE 0-1 /HPF (0-1)
[2024-06-11 13:17] LABS: ALBUMIN 3.3 g/dL (3.5-5.0); BILIRUBIN,TOTAL 0.4 mg/dL (0.2-1.0); TOTAL PROTEIN, SERUM 7.7 g/dL (6.0-8.3)
[2024-06-11 13:28] LABS: MAGNESIUM 2.2 mg/dL (1.80-2.40)
[2024-06-11 14:34] VITALS: BP 126/87; PULSE 70; RESP 16; TEMP 98.4; O2SAT 98
== END 2024-06-11 14:52 | disposition home or self-care (01) ==
LOC: EDH 11:22
DX: R55 Syncope and collapse (principal); E86.0 Dehydration; F41.9 Anxiety disorder, unspecified; F32.A Depression, unspecified; E78.00 Pure hypercholesterolemia, unspecified; I10 Essential (primary) hypertension; K21.9 Gastro-esophageal reflux disease without esophagitis; Z79.82 Long term (current) use of aspirin; Z79.899 Other long term (current) drug therapy; Z88.5 Allergy status to narcotic agent
CPT/HCPCS: 99285; 96374; 71045; 83735; 84484; 80053; 85025; 81001; 36415; 93005; J2405

== ENCOUNTER 2024-07-29 23:41 | Emergency (ER) | payer OTHER, MEDICARE ==
[~2024-07-29] VITALS: Ht 144.8 cm; Wt 76.7 kg
[~2024-07-29 23:41] MED LIST changes: -ACET-2893 PO; -AMOX-426 PO; -ASPI-556 PO; -SIMV40TA59 PO; -probiotic PO
[2024-07-29 23:43] VITALS: TEMP 98.3
--- NOTE | 2024-07-29 23:48 | NUR ---
UA CUP PROVIDED
--- NOTE | 2024-07-30 00:15 | ERN ---
ED Note History of Present Illness Stated Complaint: " SHAKING", UNABLE TO SLEEP, HEADACHE, Chief Complaint: Multiple Complaints Time Seen by MD: 23:51 Time Seen by Midlevel: 23:51 Dictation: The patient is a 73-year-old female with a history of hypertension, anxiety, depression, hyperlipidemia who presents to the emergency department with complaints of feeling anxious, unable to sleep, nausea, headache onset 10:30 p.m.. Patient denies any chest pain, shortness of breath, suicidal or homicidal ideations, head trauma or use of blood thinners. Reports it recently started her on escitalopram about 4 days ago. Patient denies any visual disturbances, unilateral weakness. Allergies: Coded Allergies: codeine (Unverified Allergy, Unknown, 05/14/24) Home Meds Reported Medications Paroxetine HCl (Paroxetine HCl) 10 Mg Tablet, 10 MG PO HS, TAB 06/06/24 Fluticasone Propionate (Flonase Nasal [place]) 50 Mcg/Actuation [place], 1 SPRY EN BID 06/06/24 Acetaminophen (Tylenol Extra Strength) 500 Mg Tablet, 500 MG PO Q8H, TAB 06/06/24 Lactobacillus Acidophilus (Probiotic Acidophilus) 2 Billion Cell Tablet, 1 EACH PO DAILY, TAB 06/06/24 Omeprazole (Omeprazole) 40 Mg Capsule.dr, 40 MG PO DAILY, CAP 06/06/24 Aspirin (ASPIRIN 81 MG ECTAB) 81 Mg Ectab, 81 MG PO DAILY, TAB.EC 06/06/24 Simvastatin (Simvastatin) 40 Mg Tablet, 40 MG PO HS, TAB 06/06/24 Metoprolol Succinate (Metoprolol Succinate) 25 Mg Tab.er.24h, 25 MG PO DAILY, TAB 06/06/24 Past Medical History Past Medical History: Anxiety, Depression, GERD, High Cholesterol, Hypertension Surgical History: Other Surgical History Other: HEMEROID Social History: Negative, Lives with family History: Not Applicable RN Note Reviewed/Agreed w/PFSH: Yes Review of System Dictation Constitutional: Negative for fever,chills, and weight loss Eyes: Negative for injury, pain,redness, and discharge ENT: Negative for injury,pain or swelling Cardiovascular: Negative for chest pain, palpitations, and edema Respiratory: Negative for shortness of breath, cough, and wheezing, Abdomen/GI: Negative for abdominal pain, nausea, vomiting, diarrhea, and constipation Back: Negative for injury and pain : Negative for injury, bleeding and discharge MS/Extremity: Negative for injury and deformity Skin: Negative for rash, and discoloration Neuro: Negative for weakness, numbness, tingling, and seizure positive for a headache Psych: Negative for suicide ideation, homicidal ideation, and hallucinations positive for anxiety l Initial Vital Sign VS Vital Signs Date Time Temp Pulse Resp B/P (MAP) Pulse Ox O2 Delivery O2 Flow Rate FiO2 07/29/24 23:43 98.2 78 24 174/100 99 Room Air 07/30/24 00:26 0 21 Physical Exam Dictation Vital Signs reviewed General Appearance: Alert, oriented x 3, no acute distress, well developed, nourished. Head and Face: non-traumatic. Eyes: PERRL, pink conjunctivas, eyelid no trauma, anterior chamber with arcus senilis. Ears: Pinnas intact and no signs of trauma or erythema ear canals clear and no discharge TM no erythema Nose: No discharge, no bleeding. Oropharynx: Mouth normal, tongue pink. pharynx clear,no erythema, tonsils no exudates, no abscesses noted, mucous membrane moist Neck: Supple, non-tender, no thyromegaly, no masses, no JVD, no bruits Breast:Deferred Chest:No tenderness, no crepitus, no paradoxical movement, no retractions Lungs:Clear, well-ventilated, symmetric, no rales, no wheezing, no rhonchi, no stridor, good breath sounds bilaterally Heart: Regular rate, regular rhythm, no murmur, no gallops Vascular: no peripheral edema, Abdomen: Soft, positive bowel sounds, nondistended, no guarding, nontender, no rebound, no masses no hepatomegaly, no splenomegaly, no Contreras's sign, no hernias. Rectal: Deferred Genital: Deferred Neurological: Normal speech, motor function intact, sensory function intact , no facial droop, no slurred speech, upper extremities equal and strength, lower extremities equal and strength Musculoskeletal: Neck nontender, full range of motion, back nontender, full range of motion, Extremities: nontender, full range of motion Skin: Color pink, dry, no turgor, no rash, no lacerations, no abrasions, no contusions. Lymphatic: Deferred Results (Laboratory/Radiology) Laboratory/Radiology Laboratory Tests Test 07/30/24 00:01 07/30/24 00:21 Urine Color COLORLESS (YELLOW) Urine Appearance CLEAR (CLEAR) Urine pH 6.5 (5.0-8.0) Urine Specific [place] 1.003 (1.001-1.031) Urine Protein NEGATIVE mg/dL (NEGATIVE) Urine Glucose (UA) NEGATIVE mg/dL (NEGATIVE) Urine Ketones NEGATIVE mg/dL (NEGATIVE) Urine Occult Blood NEGATIVE (NEGATIVE) Urine Nitrate NEGATIVE (NEGATIVE) Urine Bilirubin NEGATIVE mg/dL (NEGATIVE) Urine Urobilinogen 0.2 mg/dL (0.2-1.0) Urine Leukocyte Esterase NEGATIVE Evert/uL Urine RBC 0-1 /HPF (0-1) Urine WBC None /HPF (0-1) Urine Squamous Epithelial Cells RARE /HPF (0-2) Urine Bacteria None /HPF (None Seen) White Blood Count 10.1 K/uL (4.8-10.8) Red Blood Count 4.74 MIL/uL (4.00-5.50) Hemoglobin 12.8 g/dL (12.0-16.0) Hematocrit 39.9 % (36-48) Mean Corpuscular Volume 84.2 fL (79-99) Mean Corpuscular Hemoglobin 27.0 pg (27.0-33.0) Mean Corpuscular Hemoglobin Concent 32.1 g/dL (32.0-36.0) Red Cell Distribution Width 14.8 % (11.0-15.5) Platelet Count 252 K/uL (130-400) Mean Platelet Volume 10.8 fL (7.5-10.5) H Immature Granulocyte % (Auto) 0.4 % (0-1) Neutrophils (%) (Auto) 50.3 % (40.0-77.0) Lymphocytes (%) (Auto) 38.7 % (21.0-51.0) Monocytes (%) (Auto) 10.1 % (3.0-13.0) Eosinophils (%) (Auto) 0.1 % (0.0-8.0) Basophils (%) (Auto) 0.4 % (0.0-5.0) Neutrophils # (Auto) 5.1 K/uL (1.8-7.7) Lymphocytes # (Auto) 3.9 K/uL (1.0-4.8) Monocytes # (Auto) 1.0 K/uL (0.1-1.0) Eosinophils # (Auto) 0.01 K/uL (0.00-0.70) Basophils # (Auto) 0.04 K/uL (0.00-0.20) Absolute Immature Granulocyte (auto 0.04 K/uL (0-1) Nucleated Red Blood Cells 0.0 % (0.0-0.19) Sodium Level 142 mmol/L (136-145) Potassium Level 3.6 mmol/L (3.5-5.1) Chloride Level 105 mmol/L (101-111) Carbon Dioxide Level 30 mmol/L (21-32) Blood Urea Nitrogen 13 mg/dL (7-18) Creatinine 0.7 mg/dL (0.5-1.0) Glomerular Filtration Rate Calc 92 mL/min (>90) Random Glucose 123 mg/dL (70-105) H Total Calcium 8.9 mg/dL (8.5-10.1) Magnesium Level 2.20 mg/dL (1.80-2.40) Total Creatine Kinase 58 U/L (21-232) # Troponin I High Sensitivity 5 ng/L (4-50) REASON: headache ORDERING PHYSICIAN: DONNA DU PROCEDURE: HEAD WO - CT HEAD/BRAIN W/O CONTRAST CT HEAD/BRAIN W/O CONTRAST HISTORY: Headaches COMPARISON: None TECHNIQUE: Multiple sequential axial images of the head were obtained from the base of the skull through vertex. Patient was not given contrast through intravenous route. FINDINGS: The ventricles and extraventricular CSF spaces are dilated consistent with cerebral atrophy. Nonspecific white matter changes seen. There is no midline shift, mass effect or herniation. No acute intracranial bleed is seen. Visualized portion of the paranasal sinuses are grossly within normal limits. IMPRESSION: 1. No acute intracranial bleed is seen. 2. Atrophy with white matter changes. CT was performed with one or more following dose reduction techniques: automated exposure control, adjustment of the mA and kv according to patient's size, or use of a iterative reconstruction technique. Labs Reviewed?: Yes EKG: (+) NSR, (+) AL (132) EKG Comment: EKG 07/30/2024 ventricular rate 73, sinus rhythm, regular rate and rhythm, no STEMI. ED Course ED Course Orders Procedure Category Date Status Time Cbc With Differential LAB 07/29/24 Complete 23:48 Basic Metabolic Panel LAB 07/29/24 Complete 23:48 Troponin I High LAB 07/29/24 Complete Sensitivity 23:48 Magnesium LAB 07/29/24 Complete 23:48 12 Lead Ekg Tracing- EKG 07/29/24 Logged Technical 23:48 Creatine Kinase, Total LAB 07/29/24 Complete 23:48 Chest 1vw RAD 07/29/24 Taken 23:48 Ct Head/Brain W/O CT 07/30/24 Resulted Contrast 00:07 Metoclopramide 10 PHA 07/30/24 Complete Mg/2 Ml Vial (Reglan 1 00:30 Diphenhydramine Hcl PHA 07/30/24 Complete (Benadryl Inj) 00:30 Acetaminophen 500mg PHA 07/30/24 Complete Tab (Tylenol 500mg T 00:30 0.9%Nacl 1000ml (Ns PHA 07/30/24 In Process 1000ml) 00:30 Urinalysis LAB 07/30/24 Complete W/Microscopic 00:01 Current Medications Medications (Trade) Dose Ordered Sig/Leela Route PRN Reason Start Time Stop Time Status Last Admin Dose Admin Acetaminophen (TYLenol 500MG TAB) 1,000 mg ONCE ONCE PO 07/30/24 00:30 07/30/24 00:31 DC 07/30/24 00:33 Diphenhydramine HCl (BENAdryl INJ) 25 mg ONCE ONCE IV 07/30/24 00:30 07/30/24 00:31 DC 07/30/24 00:34 Metoclopramide HCl (regLAN 10MG IV) 10 mg ONCE ONCE IVP 07/30/24 00:30 07/30/24 00:31 DC 07/30/24 00:34 Sodium Chloride 1,000 ml @ 125 mls/hr ONCE ONCE IV 07/30/24 00:30 07/30/24 08:29 07/30/24 00:33 Vital Signs Date Time Temp Pulse Resp B/P (MAP) Pulse Ox O2 Delivery O2 Flow Rate FiO2 07/30/24 01:51 66 18 145/82 96 Room Air* 0 07/30/24 01:39 61 18 152/98 98 Room Air* 0 07/30/24 00:46 64 18 158/91 97 Room Air* 0 07/30/24 00:26 72 18 160/90 96 Room Air* 0 07/29/24 23:43 98.2 78 24 174/100 99 Room Air Medical Decision Making MDM The patient is a 73-year-old female with a history of hypertension, anxiety, depression, hyperlipidemia who presents to the emergency department with complaints of feeling anxious, unable to sleep, nausea, headache onset 10:30 p.m.. Patient denies any chest pain, shortness of breath, suicidal or homicidal ideations, head trauma or use of blood thinners. Reports it recently started her on escitalopram about 4 days ago. Patient denies any visual disturbances, unilateral weakness. CBC showed no leukocytosis, no anemia, chemistry showed no electrolyte im balance, negative troponin, urinalysis unremarkable, chest x-ray with no acute pathology, CT head positive for atrophy, no acute intracranial bleed. Patient reassessed reports relieved in headache. Appears more calm. Patient will be discharged to follow up with PCP. Differential diagnosis: ACS, anxiety, subarachnoid hemorrhage, electrolyte imbalance, dehydration Need for hospitalization: Patient does not meet criteria for hospitalization. There are no social concerns with this patient. DX & DISP Disposition: Discharge Departure Impression: Primary Impression: Anxiety Additional Impression: Headache Condition: Stable Additional Instructions: Please follow up with primary doctor in 1-2 days. Please return to ER if sympto ms worsen. FOLLOW-UP WITH PRIMARY CARE PROVIDER IN 1 TO 2 DAYS. TAKE MEDICATIONS DIRECTED HERE IN THE EMERGENCY ROOM. OKAY TO CONTINUE HOME MEDICATIONS UNLESS OTHERWISE DISCUSSED DURING YOUR VISIT IN THE EMERGENCY ROOM TODAY. RETURN TO YOUR NEAREST EMERGENCY ROOM IF SYMPTOMS WORSEN OR IF THERE IS NO IMPROVEMENT. CALL 911 IF YOU NEED IMMEDIATE ASSISTANCE. TAKE TYLENOL OR MOTRIN [id number] NEEDED AND IF NO CONTRAINDICATIONS ARE PRESENT. INCREASE ORAL HYDRATION. A WOUND CULTURE OR URINE CULTURE WAS ORDERED HERE IN THE EMERGENCY ROOM DEPARTMENT PLEASE FOLLOW-UP WITH PRIMARY CARE PROVIDER AND ADVISE THEM TO GET REPEAT PORTS FROM OUR FACILITY. IF YOU HAD ANY EDELMIRA WRAP/SPLINTS THAT WERE APPLIED HERE, PLEASE DO NOT REMOVE THEM UNTIL YOU SEE YOUR PRIMARY CARE OR SPECIALTY. Referrals: ISRA GARCIA MD (PCP) Time of Disposition: 01:54 I have reviewed the case, and I agree with, Diagnosis and Plan DONNA DU [facility] Jul 30, 2024 00:15
[2024-07-30 00:21] LABS: APPEARANCE,URINE CLEAR (CLEAR); BILIRUBIN,URINE NEGATIVE (NEGATIVE); COLOR,URINE COLORLESS (YELLOW); GLUCOSE, URINE (UA) NEGATIVE (NEGATIVE); KETONES,URINE NEGATIVE (NEGATIVE); LEUKOCYTE ESTERASE ,URINE NEGATIVE Leu/uL (NEGATIVE); NITRATE,URINE NEGATIVE (NEGATIVE); OCCULT BLOOD,URINE NEGATIVE (NEGATIVE); PH,URINE 6.5 (5.0-8.0); PROTEIN,URINE NEGATIVE (NEGATIVE); RBC,URINE 0-1 /HPF (0-1); SQUAMOUS EPITHELIAL CELL,UR RARE /HPF (0-2); UROBILINOGEN,URINE 0.2 mg/dL (0.2-1.0)
[2024-07-30] MEDS: 0.9%NACL 1000ML 1,000 ML IV ONE (00:33)
[2024-07-30] MEDS: acetaMINOPHEN 500 MG TABLET PO ONE (00:33)
[2024-07-30] MEDS: metoCLOPRAmide 10 MG/2 ML VIAL IVP ONE (00:34)
[2024-07-30] MEDS: DiphenhydrAMINE HCL 50 MG/ML VIAL IV ONE (00:34)
[2024-07-30 00:40] LABS: BASOPHILS # (AUTO) 0.04 K/uL (0.00-0.20); BASOPHILS % (AUTO) 0.4 % (0.0-5.0); CREATININE 0.7 mg/dL (0.5-1.0); EOSINOPHILS # (AUTO) 0.01 K/uL (0.00-0.70); EOSINOPHILS % (AUTO) 0.1 % (0.0-8.0); HEMATOCRIT 39.9 % (36-48); IMMATURE GRANULOCYTE ABSOLUTE 0.04 K/uL (0-1); LYMPHOCYTES # (AUTO) 3.9 K/uL (1.0-4.8); LYMPHOCYTES % (AUTO) 38.7 % (21.0-51.0); MEAN CORPUSCULAR HGB CONC 32.1 g/dL (32.0-36.0); MEAN CORPUSCULAR VOLUME 84.2 fL (79-99); MONOCYTES % (AUTO) 10.1 % (3.0-13.0); NEUTROPHILS # (AUTO) 5.1 K/uL (1.8-7.7); NEUTROPHILS % (AUTO) 50.3 % (40.0-77.0); PLATELET COUNT (AUTO) 252 K/uL (130-400); POTASSIUM 3.6 mmol/L (3.5-5.1); RED BLOOD CELL COUNT(AUTO) 4.74 MIL/uL (4.00-5.50); RED CELL DISTRIBUTION WIDTH 14.8 % (11.0-15.5); WHITE BLOOD COUNT (AUTO) 10.1 K/uL (4.8-10.8)
[2024-07-30 00:45] LABS: MAGNESIUM 2.2 mg/dL (1.80-2.40)
--- NOTE | 2024-07-30 01:04 | HMCIMG ---
CT HEAD/BRAIN W/O CONTRAST HISTORY: Headaches COMPARISON: None TECHNIQUE: Multiple sequential axial images of the head were obtained from the base of the skull through vertex. Patient was not given contrast through intravenous route. FINDINGS: The ventricles and extraventricular CSF spaces are dilated consistent with cerebral atrophy. Nonspecific white matter changes seen. There is no midline shift, mass effect or herniation. No acute intracranial bleed is seen. Visualized portion of the paranasal sinuses are grossly within normal limits. IMPRESSION: 1. No acute intracranial bleed is seen. 2. Atrophy with white matter changes. CT was performed with one or more following dose reduction techniques: automated exposure control, adjustment of the mA and kv according to patient's size, or use of a iterative reconstruction technique.
[2024-07-30 01:51] VITALS: BP 145/82; PULSE 66; RESP 18; O2SAT 96
--- NOTE | 2024-07-30 08:16 | HMCIMG ---
PORTABLE CHEST RADIOGRAPH INDICATION: HTN COMPARISON: None FINDINGS: Heart size is normal. The pulmonary vascularity and moreno appear normal. No abnormal pulmonary parenchymal opacity or consolidation identified. No significant pleural effusion noted. No pneumothorax detected. IMPRESSION: No radiographic evidence for any acute cardiopulmonary process.
--- NOTE | 2024-07-30 17:57 | EKG ---
[facility] Test Date: 2024-07-30 Test Time: 00:09:32 Pat Name: RUFINA GARRIDO Department: [facility] [address] Room: Gender: F Animal Keeper: [id number] : 1950 Requested By: YAMILETH STREET Order Number: [id number] Reading MD: Antonio Huang Measurements Intervals [place] Rate: 73 P: 30 CO: 132 QRS: 8 QRSD: 87 T: 3 QT: 398 QTc: 437 Interpretive Statements Sinus rhythm Compared to ECG 06/11/2024 13:01:11 No significant changes Electronically Signed On 07-31-2024 19:58:19 USER EXPERIENCE ARCHITECT by Antonio Huang Please click the below link to view image of tracing.
== END 2024-07-30 02:36 | disposition home or self-care (01) ==
LOC: EDH 23:41
DX: F41.9 Anxiety disorder, unspecified (principal); R51.9 Headache, unspecified; F32.A Depression, unspecified; K21.9 Gastro-esophageal reflux disease without esophagitis; E78.00 Pure hypercholesterolemia, unspecified; I10 Essential (primary) hypertension; Z79.82 Long term (current) use of aspirin; Z79.899 Other long term (current) drug therapy; Z88.5 Allergy status to narcotic agent
CPT/HCPCS: 99285; 71045; 82550; 83735; 84484; 80048; 85025; 81001; 36415; 93005; 96374; 70450; 96361; 96375; J1200; J7030; J2765

== ENCOUNTER 2024-11-08 10:45 | Emergency (ER) | payer OTHER, MEDICARE ==
[~2024-11-08] VITALS: Ht 152.4 cm; Wt 73.9 kg
--- NOTE | 2024-11-08 11:39 | ERN ---
ED Note History of Present Illness Stated Complaint: PALPITATIONS Chief Complaint: Palpitations Time Seen by MD: 11:00 Time Seen by Midlevel: 11:00 Dictation: 74-year-old female with a history of hypertension presents to the ED for evaluation of palpitations onset last night. Patient states episodes come and go, the last episode she experienced was 30 minutes prior to arrival which made her feel dizzy and nauseous. Patient reports chest pain, denies shortness of breath, vomiting, or further associated symptoms. PMHx anxiety, GERD, hypercholesterolemia, depression Allergies: Coded Allergies: codeine (Unverified Allergy, Unknown, 05/14/24) Home Meds Reported Medications Paroxetine HCl (Paroxetine HCl) 10 Mg Tablet, 10 MG PO HS, TAB 06/06/24 Fluticasone Propionate (Flonase Nasal [place]) 50 Mcg/Actuation [place], 1 SPRY EN BID 06/06/24 Acetaminophen (Tylenol Extra Strength) 500 Mg Tablet, 500 MG PO Q8H, TAB 06/06/24 Lactobacillus Acidophilus (Probiotic Acidophilus) 2 Billion Cell Tablet, 1 EACH PO DAILY, TAB 06/06/24 Omeprazole (Omeprazole) 40 Mg Capsule.dr, 40 MG PO DAILY, CAP 06/06/24 Aspirin (ASPIRIN 81 MG ECTAB) 81 Mg Ectab, 81 MG PO DAILY, TAB.EC 06/06/24 Simvastatin (Simvastatin) 40 Mg Tablet, 40 MG PO HS, TAB 06/06/24 Metoprolol Succinate (Metoprolol Succinate) 25 Mg Tab.er.24h, 25 MG PO DAILY, TAB 06/06/24 Past Medical History Past Medical History: Anxiety, Depression, GERD, High Cholesterol, Hypertension Surgical History: Other Surgical History Other: HEMEROID Social History: Negative, Lives with family History: Not Applicable Review of System Dictation Constitutional: Negative for fever,chills, and weight loss Eyes: Negative for injury, pain,redness, and discharge ENT: Negative for injury,pain or swelling Cardiovascular: Positive for palpitations, chest pain Respiratory: Negative for shortness of breath, cough, and wheezing, Abdomen/GI: Negative for abdominal pain, vomiting, diarrhea, and constipation Back: Negative for injury and pain : Negative for injury, bleeding and discharge MS/Extremity: Negative for injury and deformity Skin: Negative for rash, and discoloration Neuro: Positive for dizziness Negative for headache, weakness, numbness, tingl ing, and seizure Psych: Negative for suicide ideation, homicidal ideation, and hallucinations Initial Vital Sign VS Vital Signs Date Time Temp Pulse Resp B/P (MAP) Pulse Ox O2 Delivery O2 Flow Rate FiO2 11/08/24 10:56 98.8 70 20 99 Room Air 11/08/24 12:24 148/80 0 21 Physical Exam Dictation General: awake, alert, NAD Head/Face: Normocephalic, atraumatic Eyes: PERRL, EOMI, vision at baseline ENT: oral cavity clear, no signs of infection Neck: Trachea midline, supple, no nuchal rigidity Cardiovascular: RRR, normal S1/S2, Respiratory: CTAB, no respiratory distress, No rales or wheezes Abdomen: Soft, non-tender, non-distended, normal bowel sounds, no guarding or rebound. Skin: Warm, dry, normal turgor, no rash MS/Extremity: Pulses equal, no cyanosis, neurovascular intact, FROM Neuro: COAx4, GCS 15, no neurological deficits, normal gait Psych: Normal behavior, mood, and affect normal Results (Laboratory/Radiology) Laboratory/Radiology Laboratory Tests Test 11/08/24 11:15 11/08/24 12:37 White Blood Count 6.3 K/uL (4.8-10.8) Red Blood Count 4.65 MIL/uL (4.00-5.50) Hemoglobin 12.5 g/dL (12.0-16.0) Hematocrit 39.0 % (36-48) Mean Corpuscular Volume 83.9 fL (79-99) Mean Corpuscular Hemoglobin 26.9 pg (27.0-33.0) L Mean Corpuscular Hemoglobin Concent 32.1 g/dL (32.0-36.0) Red Cell Distribution Width 14.7 % (11.0-15.5) Platelet Count 248 K/uL (130-400) Mean Platelet Volume 11.3 fL (7.5-10.5) H Immature Granulocyte % (Auto) 0.2 % (0-1) Neutrophils (%) (Auto) 45.7 % (40.0-77.0) Lymphocytes (%) (Auto) 43.4 % (21.0-51.0) Monocytes (%) (Auto) 6.8 % (3.0-13.0) Eosinophils (%) (Auto) 3.0 % (0.0-8.0) Basophils (%) (Auto) 0.9 % (0.0-5.0) Neutrophils # (Auto) 2.9 K/uL (1.8-7.7) Lymphocytes # (Auto) 2.8 K/uL (1.0-4.8) Monocytes # (Auto) 0.4 K/uL (0.1-1.0) Eosinophils # (Auto) 0.19 K/uL (0.00-0.70) Basophils # (Auto) 0.06 K/uL (0.00-0.20) Absolute Immature Granulocyte (auto 0.01 K/uL (0-1) Nucleated Red Blood Cells 0.0 % (0.0-0.19) Prothrombin Time 10.3 SEC (9.6-11.6) Prothromb Time International Ratio 0.97 (0.85-1.15) Activated Partial Thromboplast Time 25.2 SEC (26.3-35.5) L Sodium Level 140 mmol/L (136-145) Potassium Level 4.2 mmol/L (3.5-5.1) Chloride Level 104 mmol/L (101-111) Carbon Dioxide Level 30 mmol/L (21-32) Blood Urea Nitrogen 11 mg/dL (7-18) Creatinine 0.6 mg/dL (0.5-1.0) Glomerular Filtration Rate Calc 95 mL/min (>90) Random Glucose 95 mg/dL (70-105) Total Calcium 8.9 mg/dL (8.5-10.1) Troponin I High Sensitivity 6 ng/L (4-50) 5 ng/L (4-50) Labs Reviewed?: Yes EKG Comment: EKG 11/08/2024 time 10:38 a.m. ventricular rate 71, NE 139, QRS D 84, QT 437. Sinus rhythm. No STEMI X-RAY Comment: REASON: Chest pain ORDERING PHYSICIAN: BRETT ROBIN PROCEDURE: CXR1VW - CHEST 1VW CHEST 1VW HISTORY: Chest pain COMPARISON: 07/29/2024 FINDINGS: A frontal projection of the chest was obtained. Mild bilateral pulmonary infiltrates are seen may be related to mild pulmonary vascular congestion with possible superimposed pneumonitis. The heart is normal in size. Degenerative changes are seen. No evidence of aortic calcification is seen. IMPRESSION: 1. Mild bilateral pulmonary infiltrates are seen may be related to mild pulmonary vascular congestion with possible superimposed pneumonitis. DICTATED BY: KATRINA HE MD DATE: 11/08/241425 ED Course ED Course Orders Procedure Category Date Status Time 12 Lead Ekg Tracing- EKG 11/08/24 Resulted Technical 10:47 Cbc With Differential LAB 11/08/24 Complete 11:01 Basic Metabolic Panel LAB 11/08/24 Complete 11:01 Troponin I High LAB 11/08/24 Complete Sensitivity 11:01 Chest 1vw RAD 11/08/24 Resulted 12:00 Troponin I High LAB 11/08/24 Complete Sensitivity 12:00 Pt And Ptt LAB 11/08/24 Complete 12:00 12 Lead Ekg Tracing- EKG 11/08/24 Resulted Technical 13:30 Vital Signs Date Time Temp Pulse Resp B/P (MAP) Pulse Ox O2 Delivery O2 Flow Rate FiO2 11/08/24 14:12 98.1 73 18 131/79 99 Room Air* 0 21 11/08/24 12:24 98.1 72 16 148/80 96 Room Air* 0 11/08/24 10:56 98.8 70 20 99 Room Air HEART Score Response (Comments) Value History: Low suspicion (0) 0 EKG: Normal 0 Age: > 65yrs (+2) 2 Risk Factors: 1-2 risk factors (+1) 1 Initial Troponin: Normal limit (0) 0 HEART Score Risk: Low Risk for MACE (1-3) Total 3 Medical Decision Making MDM MDM: Differential diagnosis: Palpitations, dizziness, chest pain Rationale: 74-year-old female with a history of hypertension presents to the ED for evaluation of palpitations onset last night. Patient states episodes come and go, the last episode she experienced was 30 minutes prior to arrival which made her feel dizzy and nauseous. Patient reports chest pain, denies shortness of breath, vomiting, or further associated symptoms. Labs obtained are nonspecific, initial troponin of six repeat troponin of five, EKG within normal limits. Per physical examination patient is in no acute distress, nonlabored breathing. Heart score of three. Patient was educated on findings and diagnosis. Admission was offered patient however she verbalized she was comfortable going home. Advised to follow up with PCP. Return to the emergency department if any worsening symptoms. Patient verbalized understanding. Patient is stable for discharge. Risk of complication and/or morbidity or mortality of patient management: None Medications-Per medication reconciliation Need for hospitalization: Patient does meet criteria for hospitalization. Need for emergency major/minor surgery: No There are no social concerns with this patient. Prescription drug management Prescriptions will include symptomatic care I independently interpreted the test that were performed, results were reviewed by me and considered findings on radiology if ordered. DX & DISP Disposition: Discharge Departure Impression: Primary Impression: Chest pain Additional Impression: Palpitation Condition: Stable Additional Instructions: Discharge home. Rest. Follow up with primary care DrCarlos in 24 hours. Return to the ER for any acute changes or worsening symptoms. If any medications were prescribed take as directed. Okay to continue home medications unless otherwise discussed during your visit in the emergency room today. Patient was also advised to follow-up with primary care physician in 1 to 2 days for continued monitoring. Referrals: ISRA GARCIA MD (PCP) I have reviewed, & agreed with my scribe's, documentation. (I, Elias Alegria, am scribing for LEYLA Robin) I performed the substantive portion of the visit. I have reviewed and personally made and approve the management plan that is documented in the notes by myself or the TRAVIS. I acknowledge full responsibility for the patient's management plan. I personally scribed for BRETT ROBIN) on 11/08/24 at 11:39. Electronically submitted by Elias Alegria ([email or web address]). I personally scribed for BRETT ROBIN) on 11/08/24 at 13:33. Electronically submitted by Elias Alegria ([email or web address]). BRETT ROBIN Nov 08, 2024 11:39
[2024-11-08 11:41] LABS: BASOPHILS # (AUTO) 0.06 K/uL (0.00-0.20); BASOPHILS % (AUTO) 0.9 % (0.0-5.0); EOSINOPHILS # (AUTO) 0.19 K/uL (0.00-0.70); IMMATURE GRANULOCYTE ABSOLUTE 0.01 K/uL (0-1); LYMPHOCYTES # (AUTO) 2.8 K/uL (1.0-4.8); LYMPHOCYTES % (AUTO) 43.4 % (21.0-51.0); MEAN CORPUSCULAR HEMOGLOBIN 26.9 pg (27.0-33.0); MEAN CORPUSCULAR HGB CONC 32.1 g/dL (32.0-36.0); MEAN CORPUSCULAR VOLUME 83.9 fL (79-99); MONOCYTES # (AUTO) 0.4 K/uL (0.1-1.0); MONOCYTES % (AUTO) 6.8 % (3.0-13.0); NEUTROPHILS # (AUTO) 2.9 K/uL (1.8-7.7); NEUTROPHILS % (AUTO) 45.7 % (40.0-77.0); PLATELET COUNT (AUTO) 248 K/uL (130-400); RED BLOOD CELL COUNT(AUTO) 4.65 MIL/uL (4.00-5.50); RED CELL DISTRIBUTION WIDTH 14.7 % (11.0-15.5); WHITE BLOOD COUNT (AUTO) 6.3 K/uL (4.8-10.8)
[2024-11-08 11:49] LABS: CREATININE 0.6 mg/dL (0.5-1.0); POTASSIUM 4.2 mmol/L (3.5-5.1)
[2024-11-08 12:57] LABS: INR 0.97 (0.85-1.15); PROTHROMBIN TIME 10.3 SEC (9.6-11.6)
[2024-11-08 12:58] LABS: PARTIAL THROMBOPLASTIN TIME 25.2 SEC (26.3-35.5)
--- NOTE | 2024-11-08 13:05 | EKG ---
[facility] Test Date: 2024-11-08 Test Time: 10:38:19 Pat Name: RUFINA GARRIDO Department: ED Room: Gender: F Executive Pilot: [id number] : 1950 Requested By: SIMON COBB Order Number: [id number] Reading MD: Jimmy Tucker Measurements Intervals [place] Rate: 71 P: 31 TN: 139 QRS: 20 QRSD: 84 T: 22 QT: 437 QTc: 476 Interpretive Statements Sinus rhythm Compared to ECG 07/30/2024 00:09:32 No significant changes Electronically Signed On 11-08-2024 18:28:01 REFRACTORY PRODUCTS SUPERVISOR by Jimmy Tucker Please click the below link to view image of tracing.
--- NOTE | 2024-11-08 14:09 | EKG ---
[facility] Test Date: 2024-11-08 Test Time: 13:30:32 Pat Name: RUFINA GARRIDO Department: ED Room: Gender: F Airplane Technician: [id number] : 1950 Requested By: SIMON COBB Order Number: [id number] Reading MD: Jimmy Tucker Measurements Intervals [place] Rate: 65 P: 28 SD: 138 QRS: 6 QRSD: 83 T: 8 QT: 461 QTc: 480 Interpretive Statements Sinus rhythm Probable left atrial enlargement Compared to ECG 11/08/2024 10:38:19 No significant changes Electronically Signed On 11-08-2024 18:29:19 CHART PICKER by Jimmy Tucker Please click the below link to view image of tracing.
[2024-11-08 14:12] VITALS: BP 131/79; PULSE 73; RESP 18; TEMP 98.1; O2SAT 99
--- NOTE | 2024-11-08 14:30 | HMCIMG ---
CHEST 1VW HISTORY: Chest pain COMPARISON: 07/29/2024 FINDINGS: A frontal projection of the chest was obtained. Mild bilateral pulmonary infiltrates are seen may be related to mild pulmonary vascular congestion with possible superimposed pneumonitis. The heart is normal in size. Degenerative changes are seen. No evidence of aortic calcification is seen. IMPRESSION: 1. Mild bilateral pulmonary infiltrates are seen may be related to mild pulmonary vascular congestion with possible superimposed pneumonitis.
== END 2024-11-08 14:10 | disposition home or self-care (01) ==
LOC: EDH 10:45
DX: R07.89 Other chest pain (principal); R00.2 Palpitations; F41.9 Anxiety disorder, unspecified; F32.A Depression, unspecified; E78.00 Pure hypercholesterolemia, unspecified; I10 Essential (primary) hypertension; K21.9 Gastro-esophageal reflux disease without esophagitis; Z79.82 Long term (current) use of aspirin; Z79.899 Other long term (current) drug therapy; Z88.5 Allergy status to narcotic agent
CPT/HCPCS: 36415; 71045; 80048; 84484; 85025; 85610; 85730; 93005; 99285

== ENCOUNTER → 2024-11-10 | Outpatient (CLI) | payer OTHER, MEDICARE ==
[2024-11-10 22:00] VITALS: PULSE 72; RESP 18
[2024-11-10 22:30] VITALS: PULSE 62; RESP 18
[2024-11-10 23:00] VITALS: PULSE 64; RESP 18
[2024-11-10 23:30] VITALS: PULSE 64; RESP 14
[2024-11-11] VITALS (11 sets, daily range): PULSE 62–70; RESP 8–18
--- NOTE | 2024-11-11 04:20 | NUR ---
OMEPRAZOLE 40MG,MONTELUKAST 40 MG,PROBIOTIC Addendum: 11/11/24 at 0422 by KEYONNA MACDONALD Amended: Links added.
== END | disposition home or self-care (01) ==
LOC: SLP 20:30
PROVIDERS: ATTEND Family Medicine
DX: G47.10 Hypersomnia, unspecified (principal)
CPT/HCPCS: 95810

== ENCOUNTER → 2024-11-19 | Outpatient (CLI) | payer OTHER, MEDICARE ==
[2024-11-19 21:47] VITALS: PULSE 70; RESP 12
[2024-11-19 22:30] VITALS: PULSE 68; RESP 14
[2024-11-19 23:00] VITALS: PULSE 64; RESP 8
[2024-11-19 23:30] VITALS: PULSE 64; RESP 8
[2024-11-20] VITALS (12 sets, daily range): PULSE 58–82; RESP 8–16
== END | disposition home or self-care (01) ==
LOC: SLP 19:54
PROVIDERS: ATTEND Family Medicine
DX: G47.33 Obstructive sleep apnea (adult) (pediatric) (principal); G47.10 Hypersomnia, unspecified
CPT/HCPCS: 95811

== ENCOUNTER → 2024-11-22 | Outpatient (CLI) | payer OTHER, MEDICARE ==
--- NOTE | 2024-11-23 09:14 | HMCIMG ---
Exam Type: MAMMO SCREENING BILATERAL Clinical Information: ROUTINE SCREENING Comparison: February 03, 2023 Technique: Mammogram with CAD was performed with CC and MLO projections. CAD shows no worrisome regions. FINDINGS: The breasts are heterogeneously dense, which may obscure small masses. No dominant mass or suspicious microcalcification identified. There is no nipple retraction or skin thickening. Benign-appearing calcifications are seen. CAD shows no worrisome regions. IMPRESSION: 1. No mammographic signs of malignancy. 2. Routine follow-up recommended. CATEGORY 2: BENIGN FINDINGS Note: A negative x-ray should not delay biopsy if a dominant or clinically suspicious mass is present, since 8-10% of cancers are not identified by mammography. Dense breasts may obscure an underlying neoplasm.
== END | disposition home or self-care (01) ==
LOC: RAH 12:59
PROVIDERS: ATTEND Family Medicine
DX: Z12.31 Encounter for screening mammogram for malignant neoplasm of breast (principal); R92.333 Mammographic heterogeneous density, bilateral breasts
CPT/HCPCS: 77067

== ENCOUNTER → 2024-12-28 | Outpatient (CLI) | payer OTHER, MEDICARE | END | disposition home or self-care (01) | LOC: SHCH 13:56 | PROVIDERS: ATTEND Internal Medicine Cardiovascular Disease | DX: R00.2 Palpitations (principal); R07.9 Chest pain, unspecified | CPT/HCPCS: 93306 ==

== ENCOUNTER → 2025-01-22 | Outpatient (CLI) | payer OTHER ==
--- NOTE | 2025-01-22 14:49 | HMCIMG ---
CT calcium scoring Clinical Information: [facility] SCREENING Comparison: None CT Dose Index (CTDI): 13.30 mGy Dose Length Product (DLP): 186.18 total mGy-cm Findings: Calcium score 0. No identifiable calcification. The CT scan is not a complete chest CT. Covered portion is reviewed for incidental findings. Incidental finding of a large hiatal hernia. IMPRESSION: Calcium score as above. Calcium score reference stable: 0: No identifiable calcification 1- 10: Minimal identifiable calcification 11-100: Mild calcification 101- 400: Moderate calcification 401 and above: Significant calcification Automated exposure control and adequate statistical iterative reconstructions were utilized as dose reduction techniques.
== END | disposition home or self-care (01) ==
LOC: RAH 13:14
PROVIDERS: ATTEND Internal Medicine Cardiovascular Disease
DX: Z13.6 Encounter for screening for cardiovascular disorders (principal)
CPT/HCPCS: 75571